=== PATIENT | female | born 2000 | race Caucasian/White ===

== ENCOUNTER 2020-07-11 17:41 | Emergency (ER) | payer OTHER ==
[~2020-07-11] VITALS: Ht 149.9 cm; Wt 42.6 kg
[2020-07-11 18:00] VITALS: Ht 149.9 cm; Wt 42.6 kg
[2020-07-11 19:47] LABS: BASOPHIL % 0.2 % (0-2); PLATELET COUNT 202 x10^3mcL (130-400); RED CELL DISTRIBUTION WIDTH 12.9 % (11.5-14.5)
[2020-07-11 20:00] LABS: microscopic required? YES; urine erythrocyte 2+ (NEGATIVE)
[2020-07-11 20:33] VITALS: BP 101/64
[2020-07-11 20:49] LABS: CALCIUM 9.5 mg/dL (8.5-10.1); CARBON DIOXIDE 26.5 mmol/L (21-32); CHLORIDE SERUM 96 mmol/L (98-107); GFR1 > 60 mL/min; GLUCOSE SERUM 153 mg/dL (74-106); POTASSIUM SERUM 3.1 mmol/L (3.5-5.1); SODIUM SERUM 132 mmol/L (136-145)
[2020-07-11 20:54] LABS: ALBUMIN 3.7 g/dL (3.4-5.0); ALKALINE PHOSPHATASE 50 U/L (46-116); ALT/SGPT 16 U/L (14-59); AST/SGOT 20 U/L (15-37); BILIRUBIN TOTAL 0.5 mg/dL (0.20-1.00)
[2020-07-11 20:57] LABS: TOTAL PROTEIN, SERUM 8.4 g/dL (6.4-8.2)
== END 2020-07-11 20:33 | disposition home or self-care (01) ==
LOC: ED 17:41
PROVIDERS: Emergency Medicine
DX: N12 Tubulo-interstitial nephritis, not specified as acute or chronic (principal); Z88.1 Allergy status to other antibiotic agents
CPT/HCPCS: G0480; J0696; J1885; J7030; J7060